=== PATIENT | male | born 1975 | race Caucasian/White ===

== ENCOUNTER 2020-08-11 23:04 | Emergency (ER) | payer BC ==
[~2020-08-11] VITALS: Ht 180.3 cm; Wt 100.0 kg
[~2020-08-11 23:04] MED LIST: CYCL-1 PO
[2020-08-11 23:06] VITALS: BP 155/90
[2020-08-11] MEDS ORDERED: LIDOcaine 1% W/epiNEPHrine 1:200,000 10ml vial IJ ONE (23:15)
[2020-08-11] MEDS ORDERED: TETanus/Pertussis (Acell)/Diphther VAC/PF (Tdap-Adult) 0.5ml syringe IMVAC ONE (23:15)
== END 2020-08-11 23:58 | disposition home or self-care (01) ==
LOC: ER 23:04
DX: S81.811A Laceration without foreign body, right lower leg, initial encounter (principal); Z20.3 Contact with and (suspected) exposure to rabies; Z79.899 Other long term (current) drug therapy; X58.XXXA Exposure to other specified factors, initial encounter; Y93.89 Activity, other specified; Y92.89 Other specified places as the place of occurrence of the external cause; Y99.8 Other external cause status
CPT/HCPCS: 12001; 90471; 90715; 99283